=== PATIENT | male | born 1965 | race Caucasian/White ===

== ENCOUNTER 2017-09-06 23:15 | Emergency (ER) | payer MEDICAID ==
[~2017-09-06] VITALS: Ht 162.6 cm; Wt 82.0 kg
[2017-09-07] MEDS ORDERED: INSULIN REGULAR (HUMULIN R) 300UNITS/3ML SUBCUT ONE (00:45)
[2017-09-07] MEDS ORDERED: SODIUM CHLORIDE 0.9% 1,000 ML IV ONE (00:45)
[2017-09-07 01:12] LABS: BASOPHILS % 0.4 % (0.0-2.0); EOSINOPHILS % 0.7 % (0.0-5.0); HEMATOCRIT. 45.7 % (42.0-52.0); HEMOGLOBIN. 15.7 g/dL (14.0-18.0); LYMPHOCYTES % 21.4 % (20.0-50.0); MEAN CORPUSCULAR HEMOGLOBIN 31.7 pg (28.0-32.0); MEAN CORPUSCULAR VOLUME 92.1 fL (80.0-94.0); MONOCYTES % 11.3 % (2.0-8.0); NEUTROPHILS % 66.2 % (40.0-76.0); RED BLOOD CELL COUNT 4.95 mill/uL (4.7-6.1); RED CELL DISTRIBUTION WIDTH 12.4 % (11.6-14.6)
[2017-09-07 01:16] LABS: CHLORIDE 100 mEq/L (98-107)
[2017-09-07 01:26] LABS: BETA HYDROXYBUTYRATE 0.1 mMol/L (0.0-0.3)
[2017-09-07 01:33] LABS: MEAN PLATELET VOLUME 12.4 fl (7.4-10.4); PLATELET 135 x1000/uL (130-400)
[2017-09-07 05:56] VITALS: BP 127/78
== END 2017-09-07 06:02 | disposition home or self-care (01) ==
LOC: ER 09-07 00:20
DX: E11.65 Type 2 diabetes mellitus with hyperglycemia (principal); Z91.14 Patient's other noncompliance with medication regimen; Z79.4 Long term (current) use of insulin
CPT/HCPCS: 36415; 71045; 80053; 82010; 82962; 85025; 93005; 96360; 96361; 96372; 99285; J1815; J7030; Z7610

== ENCOUNTER 2017-11-21 13:55 | Emergency (ER) | payer MEDICAID ==
[~2017-11-21] VITALS: Ht 167.6 cm; Wt 75.4 kg
[2017-11-21 14:51] LABS: BASOPHILS % 0.4 % (0.0-2.0); EOSINOPHILS % 0.2 % (0.0-5.0); HEMATOCRIT. 42.9 % (42.0-52.0); HEMOGLOBIN. 14.7 g/dL (14.0-18.0); LYMPHOCYTES % 19.7 % (20.0-50.0); MEAN CORPUSCULAR HEMOGLOBIN 31.7 pg (28.0-32.0); MEAN CORPUSCULAR VOLUME 92.3 fL (80.0-94.0); MEAN PLATELET VOLUME 11.4 fl (7.4-10.4); MONOCYTES % 6.4 % (2.0-8.0); NEUTROPHILS % 73.3 % (40.0-76.0); PLATELET 158 x1000/uL (130-400); RED BLOOD CELL COUNT 4.65 mill/uL (4.7-6.1); RED CELL DISTRIBUTION WIDTH 12.3 % (11.6-14.6)
[2017-11-21 14:52] LABS: INR 1.1; PARTIAL THROMBOPLASTIN TIME 25.7 sec (23.4-31.0); PROTHROMBIN TIME 11.7 sec (9.4-11.6)
[2017-11-21 14:55] LABS: CHLORIDE 106 mEq/L (98-107)
[2017-11-21] MEDS ORDERED: VALACYCLOVIR HCL 500MG TABLET PO STA (15:58)
[2017-11-21] MEDS ORDERED: PREDNISONE 20MG TABLET PO ONE (16:00)
[2017-11-21 16:05] LABS: *AMPHETAMINES SCREEN URINE NEGATIVE (NEGATIVE); *COCAINE SCREEN URINE NEGATIVE (NEGATIVE); METHADONE URINE SCREEN NEGATIVE (NEGATIVE); OPIATES URINE SCREEN NEGATIVE (NEGATIVE); PHENCYCLIDINE URINE SCREEN NEGATIVE (NEGATIVE)
[2017-11-21 16:06] LABS: *BARBITURATES SCREEN URINE NEGATIVE (NEGATIVE); *BENZODIAZEPINES SCREEN URINE NEGATIVE (NEGATIVE); CANNABINOID URINE SCREEN NEGATIVE (NEGATIVE)
[2017-11-21 16:16] VITALS: BP 138/95
== END 2017-11-21 16:43 | disposition home or self-care (01) ==
LOC: ER 15:03
DX: G51.0 Bell's palsy (principal); E11.9 Type 2 diabetes mellitus without complications
CPT/HCPCS: 36415; 70450; 71045; 80053; 80305; 82962; 83036; 83690; 84484; 85025; 85610; 85651; 85730; 93005; 99285; J7512

== ENCOUNTER 2018-07-15 20:12 | Emergency (ER) | payer MEDICAID ==
[~2018-07-15] VITALS: Ht 165.1 cm; Wt 80.3 kg
[2018-07-15] MEDS ORDERED: ENALAPRIL 2.5MG/2ML VIAL 2ML IV ONE (21:30)
[2018-07-15 22:13] LABS: BASOPHILS % 0.5 % (0.0-2.0); HEMATOCRIT. 48.7 % (42.0-52.0); HEMOGLOBIN. 16.8 g/dL (14.0-18.0); LYMPHOCYTES % 29.2 % (20.0-50.0); MEAN CORPUSCULAR HEMOGLOBIN 31.7 pg (28.0-32.0); MEAN CORPUSCULAR VOLUME 91.9 fL (80.0-94.0); NEUTROPHILS % 61.3 % (40.0-76.0); RED CELL DISTRIBUTION WIDTH 12.2 % (11.6-14.6)
[2018-07-15 22:18] LABS: CHLORIDE 101 mEq/L (98-107)
[2018-07-15 22:42] LABS: MEAN PLATELET VOLUME 11.5 fl (7.4-10.4); PLATELET 161 x1000/uL (130-400)
[2018-07-15] MEDS ORDERED: KETOROLAC 15MG/ML VIAL IV ONE (23:30)
[2018-07-16 00:47] VITALS: BP 152/98
== END 2018-07-16 00:50 | disposition home or self-care (01) ==
LOC: ER 23:35
DX: I10 Essential (primary) hypertension (principal); R07.9 Chest pain, unspecified
CPT/HCPCS: 36415; 71045; 80053; 82962; 83690; 83880; 84484; 85025; 93005; 96374; 96375; 99284; J1885; J3490

== ENCOUNTER 2022-08-05 10:36 | Emergency (ER) | payer MEDICAID ==
[~2022-08-05] VITALS: Ht 152.4 cm; Wt 66.0 kg
[2022-08-05 10:44] VITALS: BP 210/87
== END 2022-08-05 12:31 | disposition home or self-care (01) ==
LOC: ER 10:36
DX: H92.02 Otalgia, left ear (principal); E11.9 Type 2 diabetes mellitus without complications; I10 Essential (primary) hypertension
CPT/HCPCS: 99281

== ENCOUNTER 2022-09-09 10:04 | Emergency (ER) | payer MEDICAID ==
[~2022-09-09] VITALS: Ht 165.1 cm; Wt 73.0 kg
[2022-09-09 13:45] VITALS: BP 119/71
[2022-09-09] MEDS ORDERED: IBUPROFEN 400MG TABLET PO ONE (13:45)
[2022-09-09] MEDS ORDERED: ACETAMINOPHEN 325MG TABLET PO ONE (13:45)
[2022-09-09 14:30] LABS: CHLORIDE 99 mEq/L (98-107)
[2022-09-09 14:32] LABS: BASOPHILS % 0.3 % (0.0-2.0); EOSINOPHILS % 0.2 % (0.0-5.0); HEMATOCRIT. 50.1 % (42.0-52.0); LYMPHOCYTES % 23.3 % (20.0-50.0); MEAN CORPUSCULAR HEMOGLOBIN 31.9 pg (28.0-32.0); MEAN CORPUSCULAR VOLUME 93.8 fL (80.0-94.0); MEAN PLATELET VOLUME 12.2 fl (7.4-10.4); MONOCYTES % 9.7 % (2.0-8.0); NEUTROPHILS % 66.5 % (40.0-76.0); PLATELET 183 x1000/uL (130-400); RED BLOOD CELL COUNT 5.35 mill/uL (4.7-6.1); RED CELL DISTRIBUTION WIDTH 12.4 % (11.6-14.6)
[2022-09-09 14:39] LABS: CLARITY URINE CLEAR (CLEAR); COLOR URINE YELLOW (YELLOW); KETONES URINE TRACE (NEGATIVE); LEUKOCYTE ESTERASE URINE NEGATIVE (NEGATIVE); NITRITE URINE NEGATIVE (NEGATIVE); OCCULT BLOOD URINE NEGATIVE (NEGATIVE); PROTEIN URINE NEGATIVE (NEGATIVE); SPECIFIC GRAVITY URINE 1.039 (1.005-1.030); UROBILINOGEN URINE 0.2 E.U./dL (0.2-1.0)
[2022-09-09] MEDS ORDERED: INSULIN REGULAR (HUMULIN R) 300UNITS/3ML VIAL SUBCUT STA (15:48)
[2022-09-09] MEDS ORDERED: IBUP-2028 MT (17:30)
== END 2022-09-09 18:49 | disposition home or self-care (01) ==
LOC: ER 10:04
DX: E11.65 Type 2 diabetes mellitus with hyperglycemia (principal); M54.9 Dorsalgia, unspecified; I10 Essential (primary) hypertension
CPT/HCPCS: 36415; 80053; 81003; 82962; 84484; 85025; 93005; 96372; 99284; J1815

== ENCOUNTER 2023-01-22 00:39 | Inpatient (IN) | payer MEDICAID, OTHER ==
[~2023-01-22] VITALS: Ht 165.1 cm; Wt 60.8 kg
[~2023-01-22 00:39] MED LIST: IBUP-2028 MT
[2023-01-22] MEDS ORDERED: DICYCLOMINE 10 MG/5 ML ORAL SYR PO STA (01:21)
[2023-01-22] MEDS ORDERED: VISCOUS LIDOCAINE 2% 15 ML UDC PO STA (01:21)
[2023-01-22] MEDS ORDERED: MAGNESIUM/ALUMINUM HYDROXIDE/SIMETHICONE 30ML UDC PO STA ×2 (01:21→04:32)
[2023-01-22] MEDS ORDERED: MAGNESIUM/ALUMINUM HYDROXIDE/SIMETHICONE 30ML UDC PO NR (01:30)
[2023-01-22 02:00] LABS: BASOPHILS % 0.3 % (0.0-2.0); HEMATOCRIT. 45.6 % (42.0-52.0); HEMOGLOBIN. 15.3 g/dL (14.0-18.0); LYMPHOCYTES % 16.3 % (20.0-50.0); MEAN CORPUSCULAR VOLUME 95.6 fL (80.0-94.0); MEAN PLATELET VOLUME 11.2 fl (7.4-10.4); MONOCYTES % 2.5 % (2.0-8.0); NEUTROPHILS % 80.9 % (40.0-76.0); PLATELET 185 x1000/uL (130-400); RED BLOOD CELL COUNT 4.77 mill/uL (4.7-6.1); RED CELL DISTRIBUTION WIDTH 12.1 % (11.6-14.6)
[2023-01-22 02:41] LABS: CHLORIDE 101 mEq/L (98-107)
[2023-01-22 04:12] LABS: PROTHROMBIN TIME 11.1 sec (9.6-11.0)
[2023-01-22] MEDS ORDERED: FAMOTIDINE 20MG/2ML VIAL IV STA (04:32)
[2023-01-22] MEDS ORDERED: SODIUM CHLORIDE 0.9% 1,000 ML IV ONE (04:45)
[2023-01-22] MEDS ORDERED: ONDANSETRON HCL 4MG/2ML INJ IV ONE (06:30)
[2023-01-22] MEDS ORDERED: FOLIC ACID 1 MG, THIAMINE HCL 100 MG, MVI, ADULT NO.1 10 ML in DEXTROSE 5% WATER 1,000 ML IV ONE ×4 (07:15)
[2023-01-22 08:15] VITALS: BP 145/74; PULSE 98; RESP 20; TEMP 97.7
[2023-01-22] MEDS ORDERED: DEXTROSE 50% WATER 50ML SYRINGE IV PRN (08:15)
[2023-01-22] MEDS ORDERED: ONDANSETRON HCL 4MG/2ML INJ IV PRN (08:15)
[2023-01-22] MEDS ORDERED: DOCUSATE SODIUM 100MG CAPSULE PO PRN (08:15)
[2023-01-22] MEDS ORDERED: ACETAMINOPHEN 325MG TABLET PO PRN ×2 (08:15)
[2023-01-22] MEDS ORDERED: IPRATROPIUM/ALBUTEROL 0.5-3(2.5)MG/3ML NEB HHN PRN (08:15)
[2023-01-22] MEDS ORDERED: LORAZEPAM 0.5MG TABLET PO PRN (08:15)
[2023-01-22] MEDS ORDERED: CLONIDINE 0.1MG TABLET PO PRN (08:15)
[2023-01-22] MEDS ORDERED: FOLIC ACID 1MG TABLET PO SCH (09:00)
[2023-01-22] MEDS: BLOOD SUGAR DIAGNOSTIC STRIP TEST SCH ×4 (09:20→21:28)
[2023-01-22] MEDS: INSULIN LISPRO 100 UNITS/ML SUBCUT SCH ×4 (09:35→21:00)
[2023-01-22 10:36] LABS: PHOSPHORUS 1.5 mg/dL (2.5-4.9)
[2023-01-22] MEDS: THIAMINE HCL 100MG TABLET PO SCH (10:46)
[2023-01-22] MEDS: FOLIC ACID 1MG TABLET PO SCH (10:46)
[2023-01-22] MEDS: PANTOPRAZOLE SODIUM 40 MG/VIAL IV SCH (10:47)
[2023-01-22 12:00] VITALS: BP 153/69; PULSE 82; RESP 20; TEMP 98.2
[2023-01-22] MEDS: CHLORDIAZEPOXIDE 25MG CAPSULE PO SCH ×2 (14:19→22:30)
[2023-01-22 16:00] VITALS: BP 139/84; PULSE 76; RESP 20; TEMP 98.2
[2023-01-22] MEDS ORDERED: NALOXONE HCL 0.4MG/ML VIAL IV PRN (17:00)
[2023-01-22] MEDS: SODIUM CHLORIDE 0.9% 1,000 ML IV SCH (19:25)
[2023-01-22 20:00] VITALS: BP 119/76; PULSE 63; RESP 17; TEMP 97.7
[2023-01-23] VITALS: BP 105/74; PULSE 63; RESP 18; TEMP 97.6
[2023-01-23] MEDS: SODIUM CHLORIDE 0.9% 1,000 ML IV SCH ×2 (03:20→16:40)
[2023-01-23] MEDS: CHLORDIAZEPOXIDE 25MG CAPSULE PO SCH ×3 (05:45→21:09)
[2023-01-23] MEDS: BLOOD SUGAR DIAGNOSTIC STRIP TEST SCH ×4 (05:52→21:13)
[2023-01-23 07:06] LABS: BASOPHILS % 0.3 % (0.0-2.0); EOSINOPHILS % 0.7 % (0.0-5.0); HEMATOCRIT. 43.5 % (42.0-52.0); HEMOGLOBIN. 14.9 g/dL (14.0-18.0); LYMPHOCYTES % 27.9 % (20.0-50.0); MEAN CORPUSCULAR HEMOGLOBIN 32.3 pg (28.0-32.0); MEAN CORPUSCULAR VOLUME 94.3 fL (80.0-94.0); MONOCYTES % 10.8 % (2.0-8.0); NEUTROPHILS % 60.3 % (40.0-76.0); RED BLOOD CELL COUNT 4.62 mill/uL (4.7-6.1); RED CELL DISTRIBUTION WIDTH 12.5 % (11.6-14.6)
[2023-01-23 07:21] LABS: CHLORIDE 107 mEq/L (98-107)
[2023-01-23] MEDS: INSULIN LISPRO 100 UNITS/ML SUBCUT SCH ×4 (08:08→21:12)
[2023-01-23] MEDS: FOLIC ACID 1MG TABLET PO SCH (09:23)
[2023-01-23] MEDS: THIAMINE HCL 100MG TABLET PO SCH (09:23)
[2023-01-23] MEDS: PANTOPRAZOLE SODIUM 40 MG/VIAL IV SCH (09:30)
[2023-01-23] MEDS ORDERED: INSU100I28 SQ (10:04)
[2023-01-23] MEDS ORDERED: CHLO25CA10 MT (10:04)
[2023-01-23] MEDS ORDERED: PANT40TA51 MT (10:04)
[2023-01-23] MEDS ORDERED: [UNRECOGNIZED DRUG - CODE] MC (10:04)
[2023-01-23] MEDS ORDERED: MULT1CAP44 MT (10:04)
[2023-01-23] MEDS ORDERED: FOLI-43 MT (10:04)
[2023-01-23] MEDS ORDERED: METF-414 MT (10:04)
[2023-01-23] MEDS ORDERED: THIA100T72 MT (10:04)
[2023-01-23] MEDS: HYDROCODONE/ACETAMINOPHEN 5/325MG TABLET PO PRN ×2 (10:32→15:29)
[2023-01-23 12:53] VITALS: BP 158/91; PULSE 57; TEMP 97.7; O2SAT 100
[2023-01-23] MEDS: METOCLOPRAMIDE HCL 10MG/2ML VIAL IV SCH (16:31)
[2023-01-23] MEDS ORDERED: METOCLOPRAMIDE HCL 10MG/2ML VIAL IV SCH (18:00)
[2023-01-23 23:25] LABS: MEAN PLATELET VOLUME 11.8 fl (7.4-10.4); PLATELET 154 x1000/uL (130-400)
[2023-01-24] MEDS: METOCLOPRAMIDE HCL 10MG/2ML VIAL IV SCH ×3 (01:37→13:34)
[2023-01-24 04:00] VITALS: BP 100/63; PULSE 55; RESP 16; TEMP 96.6
[2023-01-24] MEDS: CHLORDIAZEPOXIDE 25MG CAPSULE PO SCH ×2 (05:16→13:34)
[2023-01-24] MEDS: SODIUM CHLORIDE 0.9% 1,000 ML IV SCH (05:20)
[2023-01-24] MEDS: BLOOD SUGAR DIAGNOSTIC STRIP TEST SCH ×2 (06:25→12:20)
[2023-01-24 08:00] VITALS: BP 99/62; PULSE 54; RESP 17; TEMP 97.9
[2023-01-24] MEDS: INSULIN LISPRO 100 UNITS/ML SUBCUT SCH ×2 (08:15→13:38)
[2023-01-24] MEDS ORDERED: METO5TAB86 MT (08:58)
[2023-01-24] MEDS ORDERED: FAMOTIDINE 20MG/2ML VIAL IV SCH (09:00)
[2023-01-24] MEDS: THIAMINE HCL 100MG TABLET PO SCH (11:33)
[2023-01-24] MEDS: FOLIC ACID 1MG TABLET PO SCH (11:34)
[2023-01-24 11:57] LABS: BASOPHILS % 0.4 % (0.0-2.0); EOSINOPHILS % 0.6 % (0.0-5.0); HEMATOCRIT. 42.5 % (42.0-52.0); HEMOGLOBIN. 14.6 g/dL (14.0-18.0); LYMPHOCYTES % 28.4 % (20.0-50.0); MEAN CORPUSCULAR HEMOGLOBIN 32.5 pg (28.0-32.0); MEAN CORPUSCULAR VOLUME 94.6 fL (80.0-94.0); MEAN PLATELET VOLUME 11.9 fl (7.4-10.4); MONOCYTES % 11.7 % (2.0-8.0); NEUTROPHILS % 58.9 % (40.0-76.0); PLATELET 135 x1000/uL (130-400); RED CELL DISTRIBUTION WIDTH 12.4 % (11.6-14.6)
[2023-01-24 12:00] VITALS: BP 96/62; PULSE 58; RESP 19; TEMP 98.1
[2023-01-24 12:09] LABS: CHLORIDE 109 mEq/L (98-107)
== END 2023-01-24 15:20 | disposition home or self-care (01) | DRG 241 ==
LOC: ER 00:39 → 6EST 07:34 → EDBEDREQ 07:41 → EDBEDREQTM 07:41
PROVIDERS: ADMIT Internal Medicine; ATTEND Internal Medicine
DX: K29.70 Gastritis, unspecified, without bleeding (principal); E11.43 Type 2 diabetes mellitus with diabetic autonomic (poly)neuropathy; K31.84 Gastroparesis; E11.65 Type 2 diabetes mellitus with hyperglycemia; K27.9 Peptic ulcer, site unspecified, unspecified as acute or chronic, without hemorrhage or perforation; E87.6 Hypokalemia; Z79.4 Long term (current) use of insulin
CPT/HCPCS: 36415; 74176; 80048; 80053; 80076; 82962; 83036; 83735; 84100; 85025; 99285; C9113; J1815; J2405; J2765; J3411; J3490; J7030; J7070